=== PATIENT | female | born 1965 | race Hispanic/Latino ===

== ENCOUNTER 2022-11-12 10:40 | Emergency (ER) | payer OTHER ==
[~2022-11-12] VITALS: Ht 154.9 cm; Wt 66.2 kg
[2022-11-12 11:16] VITALS: O2SAT 100
[2022-11-12] MEDS ORDERED: HYDROCODONE/APAP 5MG-325MG TAB PO ONE (11:30)
[2022-11-12] MEDS ORDERED: DEXAMETHASONE SOD PHOS 10 MG/1 ML VIAL IM ONE (11:30)
[2022-11-12] MEDS ORDERED: ONDANSETRON HCL 4 MG ORAL DISINTEGRATING TAB PO ONE (12:45)
[2022-11-12] MEDS ORDERED: DONNATAL/LIDOCAINE/MAALOX 30 ML SUSP PO ONE (13:00)
[2022-11-12] MEDS ORDERED: MAGNESIUM/ALUMINUM/SIMETHICONE 30 ML UDC ONE (13:13)
[2022-11-12] MEDS ORDERED: BELLADONNA ALK/PHENOBARBITAL 5 ML UDC ONE (13:13)
== END 2022-11-12 13:23 | disposition home or self-care (01) ==
LOC: ER 10:45
DX: M54.42 Lumbago with sciatica, left side (principal); M54.41 Lumbago with sciatica, right side; I10 Essential (primary) hypertension; E11.9 Type 2 diabetes mellitus without complications
CPT/HCPCS: 72131; 99284; J1100; Q0162

== ENCOUNTER → 2024-08-31 | Outpatient (REF) | payer OTHER | LOC: US 07:57 | PROVIDERS: ATTEND Family Medicine | DX: R74.01 Elevation of levels of liver transaminase levels (principal) | CPT/HCPCS: 76705 ==